=== PATIENT | female | born 1990 | race Caucasian/White ===

== ENCOUNTER 2016-08-18 19:32 | Emergency (ER) | payer OTHER ==
--- NOTE | 2016-08-18 22:28 | ED NURSING NOTES ---
Clinical Report - Nurses [facility] [address] [place] [address] 08/18/2016 19:36 Patient: ANDREW CAMPBELL TRIAGE Triage time 20:21. Acuity: LEVEL 3. Chief Complaint: (Rapid heart rate). 20:27. Alert. SEPSIS SCREEN: Sepsis Screen. Negative (no infection suspected/documented). DEBBIE COMA SCORE: [place] Coma Scale: 15- eyes open spontaneously (4); best verbal response- oriented x 4 (5); best motor response- obeys commands (6). --20:27 José Miguel Dowd R.N. 20:21 08/18/16. BP: 141/101. HR: 148. RR: 17. O2 saturation: 100% on room air. Temp: 98.7 F. Pain level now: 0/10. --20:27 José Miguel Dowd R.N. Weight: 92.5 kg stated. Height/Length: 59 inches Per Patient. BMI: 41.2. --20:26 José Miguel Dowd R.N. Medications MetFORMIN HCl Oral 2000mg , daily. --20:23 José Miguel Dowd R.N. NexIUM Oral 40 mg, daily. --20:24 José Miguel Dowd R.N. Zoloft Oral 50 mg, daily. --20:24 José Miguel Dowd R.N. ASA Oral 81mg , daily. --20:24 José Miguel Dowd R.N. Novalog, PRN. --20:25 José Miguel Dowd R.N. Medication/allergy information source: the patient. --20:27 José Miguel Dowd R.N. Allergies No Known Drug Allergy. --20:25 José Miguel Dowd R.N. History Arrived by private vehicle. Historian: patient. Accompanied by family. Primary physician (Thomas). Onset. (about 1800). Treatment STORE PERSON: None. PAST MEDICAL HX: Immunizations: up-to-date. Last normal menstrual period was 2 weeks ago. SOCIAL HX: Never smoker. Occasional alcohol use. No drug use. No infectious disease exposure. ABUSE ASSESSMENT: No report of abuse. FALL RISK ASSESSMENT: Fall risk assessment completed. No fall risk identified. NUTRITIONAL RISK ASSESSMENT: The nutritional risk assessment revealed no deficiencies. FUNCTIONAL ASSESSMENT: Functional assessment: no impairments noted. LEARNING NEEDS ASSESSMENT: The learning needs assessment revealed no barriers. SKIN INTEGRITY ASSESSMENT: Skin integrity risk assessment completed. No skin integrity risk identified. --20:27 José Miguel Dowd R.N. PROBLEMS: Polycystic Ovary Disease. Gastroesophageal Reflux Disease. Diabetes Mellitus. Depression. --20:26 José Miguel Dowd R.N. ADDITIONAL SURGERIES: Atrial Septal Defect Repair. --20:26 José Miguel Dowd R.N. Interventions ID band on patient. --20:27 José Miguel Dowd R.N. PHYSICAL ASSESSMENT 20:35. Ambulatory to room. Patient gowned. GENERAL / NEURO / PSYCH: Alert. Oriented X 4. Appears in no acute distress. HEENT: Mucous membranes are pink. RESPIRATORY: Respirations not labored. CVS: Capillary refill less than 2 seconds. GI / : Abdomen soft. SKIN: Skin is warm and dry. --20:46 Elo Wong R.N. NURSING PROGRESS NOTES 20:45 08/18/16. weeder thinner placed on patient. Patient gowned. Head of bed elevated. Reassurance given. Patient identifiers checked. Call light placed in reach. Side rails up. Bed placed in lowest position. Patient ready for evaluation- chart flagged. --20:45 Elo Wong R.N. late entry -20:35. Patient ID band checked for patient name and birthdate: patient confirmed. Clean catch urine collected; sample sent to lab for urinalysis and culture. Specimen labeled in the presence of the patient. --20:46 Elo Wong R.N. 20:55 08/18/2016 Site #1 started via IV in the right antecubital space with an 20g angiocath, with aseptic technique and good blood return; one attempt. Blood drawn: rainbow set. Labeled in the presence of the patient and sent to the lab. Saline lock flushed with 10 mL saline. --21:12 Elo Wong R.N. EKG time: (2119). EKG was ordered, performed by a tech and shown to the BLOCKERS SKIVER. --21:20 Elliot Edwards, ER Converting Supervisor 21:10 08/18/2016 Started bag #1 1000 mL IV Fluids IV NS (Saline); at 1000 mL/hr over 1 hour(s) via site #1 via IV pump. IV patency established. IV site checked: no pain, redness, or swelling. IV flushed thoroughly pre- and post-medication administration. --21:22 Elo Wong R.N. 22:00 08/18/16. BP: 138/73. HR: 117. RR: 22. O2 saturation: 100% on room air. Temp: deferred. Pain level now: 0/10. Additional comments: resting quietly, at bedside, waiting for lab results. --22:04 Elo Wong R.N. 22:15 08/18/2016 IV Fluids IV NS Discontinued: bag #1 infused. Total amount infused: 1000 mL. IV patency established. IV site checked: no pain, redness, or swelling. IV flushed thoroughly. --23:15 José Miguel Medrano R.N. 22:45 08/18/2016 Site #1 removed upon discharge. Catheter intact. Manual pressure, pressure dressing and bandaid applied. --23:21 José Miguel Medrano R.N. DISPOSITION / DISCHARGE 22:50 08/18/16. BP: 126/74. HR: 115. RR: 16. O2 saturation: 100% on room air. Temp: 99.4 F (oral). Pain level now: 0/10. --23:12 José Miguel Medrano R.N. Departure time: 2249. --23:12 José Miguel Medrano R.N. 22:50. Condition at departure: improved. No learning barriers present. Discharge instructions provided and reviewed with the patient and spouse. Reviewed medication(s) (prescription given to pt). Reviewed referral to family practice for followup. Patient verbalized understanding. Written instructions provided in Jamaican. The patient was discharged by the nurse practitioner. She was discharged home and accompanied by spouse. She left the Emergency Department ambulatory and via private vehicle. Parent driving. --23:14 José Miguel Medrano R.N. Locked/Released at 08/18/2016 23:22 by José Miguel Medrano R.N.
--- NOTE | 2016-08-18 22:28 | ED ORDER SUMMARY ---
..... Patient: ANDREW CAMPBELL OrderSheet [facility] VisitID: [id number] [place] [address] 25y, F Registration Date/Time: 08/18/2016 ORDER SHEET Weight: 92.5 kg (stated) Allergies: No Known Drug Allergy GENERAL ORDERS: Jewel Cupping Machine Operator (Continuous) (raqipd heart) (21:08/18/2016 DDean R.N. per protocol) (21:22 DDean R.N.) CBC w Diff Urgent (21:08/18/2016 DDean R.N. per protocol) (Ack 21:27 LTapper) (21:46 DDean R.N.) CMP Urgent (21:08/18/2016 DDean R.N. per protocol) (Ack 21:27 LTapper) (21:46 DDean R.N.) UA-Culture if indicated Urgent (21:08/18/2016 DDean R.N. per protocol) (Ack 21:27 LTapper) (21:46 DDean R.N.) Oxygen (2 L/min) (NC) (21:21 08/18/2016 DDean R.N. per protocol) (21:22 DDean R.N.) EKG - ER Stat (21:08/18/2016 DDean R.N. per protocol) (21:21 [facility] CPK Urgent (21:34 08/18/2016 HBivens A.R.N.P.) (Ack 21:35 LTapper) (21:46 DDean R.N.) Troponin-I Urgent (21:34 08/18/2016 HBivens A.R.N.P.) (Ack 21:35 LTapper) (21:46 DDean R.N.) D-Dimer Urgent (21:34 08/18/2016 HBivens A.R.N.P.) (Ack 21:35 LTapper) (21:46 DDean R.N.) MEDICATION ORDERS: IV FLUIDS: IV NS with Normal Saline 1 Liter: initial bolus none -, then 1000 mL/hr for X1 (NOW) (21:20 08/18/2016 DDean R.N. per protocol) (21:22 DDean R.N.) ORDER SHEET NOTES: [Electronically signed by José Miguel Medrano R.N. (23:22 08/18/2016)] [Electronically signed by Audrey Young (11:54 08/19/2016)] [Electronically locked/signed by José Miguel Medrano R.N. (23:08/18/2016)]
--- NOTE | 2016-08-18 22:28 | ED CLINICAL REPORT ---
Clinical Report - Physicians/Mid Levels [facility] [address] [place] [address] 08/18/2016 19:36 Patient: ANDREW CAMPBELL Time Seen: 21:15; initial patient contact, initial documentation, patient care assumed. Arrived- By private vehicle. Historian- patient. HISTORY OF PRESENT ILLNESS Chief Complaint: PALPITATIONS. Modifying factors. Not worsened by anything. Not relieved by anything. This started just prior to arrival and is still present but is better now. Onset during rest. It is described as a fast and pounding heart beat. No chest pain or discomfort, difficulty breathing, sweating episodes or fainting episodes. No dizziness, tingling or muscle spasms. Similar symptoms previously: Once, as bad. ( and was told she was dehydrated). Recent medical care: Not recently seen/assessed. REVIEW OF SYSTEMS No fever, cough, abdominal pain, vomiting or diarrhea. All systems otherwise negative, except as recorded above. PAST HISTORY See nurses notes. PROBLEMS: Polycystic Ovary Disease. Gastroesophageal Reflux Disease. Diabetes Mellitus. Depression. --20:26 José Miguel Dowd RCataN. ADDITIONAL SURGERIES: Atrial Septal Defect Repair. --20:26 José Miguel Dowd R.N. SOCIAL HISTORY Never smoker. Occasional alcohol use. No drug use. No recent travel. Is a local resident. ADDITIONAL NOTES The nursing notes have been reviewed with agreement regarding the chief complaint, HPI, ROS, PMH and patient medications and allergies. PHYSICAL EXAM Vital Signs: 08/18/2016 20:21 BP: 141/101. HR: 148. RR: 17. O2 saturation: 100%. Temp: 98.7 F. Pain level now: 0/10. Have been reviewed as abnormal and appear to be correct. Hypertensive. Tachycardic. Respiratory rate normal. Temperature normal. Oxygen saturation normal. Appearance: Alert. Oriented X3. No acute distress. Eyes: Pupils equal, round and reactive to light. Eyes normal inspection. Neck: Normal inspection. Neck supple. CVS: Heart rate / rhythm abnormal. Tachycardia (ventricular rate = 130). Heart sounds normal. Pulses normal. Respiratory: No respiratory distress. Breath sounds normal. Chest nontender. Back: Normal external inspection. Skin: Skin warm and dry. Normal skin color. No rash. Normal skin turgor. Extremities: Extremities exhibit normal ROM. No lower extremity edema. Neuro: Oriented X 3. No motor deficit. No sensory deficit. LABS, X-RAYS, AND EKG EKG: EKG time: (2119). No acute process. No acute ischemia. Regular narrow-complex tachycardia (135). Sinus tachycardia. The study has been interpreted contemporaneously by me (and dr barraza). The EKG appears to be a good tracing. Interpretation time: 2119. Laboratory Tests: UA-Culture if indicated: (ISHAAN: 08/18/2016 20:50) ( MsgRcvd 08/18/2016 21:41) Final results Test Result Flag Units (Reference) URINE COLOR YELLOW URINE APPEARANCE SL CLOUDY URINE GLUCOSE 2+ (NEGATIVE) URINE BILIRUBIN NEGATIVE (NEGATIVE) URINE KETONE NEGATIVE (NEGATIVE) URINE SPECIFIC GRAVITY <= 1.005 L (1.010-1.030) URINE PH 6.5 (5.0-8.0) URINE PROTEIN NEGATIVE (NEGATIVE) URINE UROBILINOGEN 0.2 EU/dL (0.2-1.0) URINE NITRITE NEGATIVE (NEGATIVE) URINE BLOOD 1+ (NEGATIVE) URINE LEUK ESTERASE POSITIVE (NEGATIVE) URINE RBC NONE SEEN rbc/hpf (0-1) URINE WBC 25-50 wbc/hpf (0-1) URINE EPITHELIAL CELLS >15 EPI/hpf (0-5) URINE BACTERIA MANY (4+) (NONE SEEN) URINE COMMENT CULTURE INDICATED URINE CULTURES ARE SET-UP BASED ON THE FOLLOWING CRITERIA:POSITIVE NITRITEPOSITIVE LEUKOCYTE ESTERASEGREATER THAN 10 WHITE BLOOD CELLSMODERATE (2+) OR GREATER BACTERIA CBC w Diff: (ISHAAN: 08/18/2016 20:55) ( MsgRcvd 08/18/2016 21:57) Final results Test Result Flag Units (Reference) WHITE BLOOD COUNT 7.7 K/uL (4.5-11.5) RED BLOOD COUNT 4.77 M/uL (4.00-5.20) HEMOGLOBIN 10.5 L gm/dL (12.0-16.0) HEMATOCRIT 34.0 L % (36.0-46.0) MEAN CELL VOLUME 71 L fL (80-100) MEAN CORPUSCULAR HGB 22 L pg (26-34) MEAN CORPUSCULAR HGB CONC 31 g/dL (31-37) RED CELL DISTRIBUTION WIDTH 17.5 H % (11.6-14.8) PLATELET COUNT 301 K/uL (150-400) NEUTROPHIL % 67.4 % (50-75) LYMPH % 23.7 L % (25-40) MONO % 6.7 % (3-14) EOSINOPHIL % 1.6 % (0-4) BASOPHIL % 0.6 % (0-2) RBC MORPHOLOGY 1+ ANISOCYTOSIS~~1+ MICROCYTOSIS [id number]: (ISHAAN: 08/18/2016 20:55) ( [facility] 08/18/2016 22:04) Final results Test Result Flag Units (Reference) D-DIMER QUANTITATIVE 0.36 ug/mLFEU (0.27-0.52) The primary value of this quantitative assay relates toits negative predictive value (i.e. exclusion) of pulmonaryembolism/deep vein thrombosis/DIC.Elevated levels of d-dimer may also occur with:, age, cancer, inflammation, liver disease,post-op, infection, hematoma, coronary disease, peripheralarteriopathy, bleeding disorders and thrombolytic treatment.Results should be correlated with other clinical andradiological data.Testing Methodology: Latex Immunoassay CPK: (ISHAAN: 08/18/2016 20:55) ( [facility] 08/18/2016 21:59) Final results Test Result Flag Units (Reference) CPK 79 U/L (24-260) TROPONIN I <0.05 L ng/mL (0.00-1.5) TROPONIN REFERENCE RANGE:<0.1 NEGATIVE0.1-1.5 INDETERMINANT>1.5 POSITIVE CMP: (ISHAAN: 08/18/2016 20:55) ( [facility] 08/18/2016 21:47) Final results Test Result Flag Units (Reference) GLUCOSE 321 H mg/dL (70-110) BUN 14 mg/dL (7-18) CREATININE 0.9 mg/dL (0.6-1.3) Estimated GFR >60 mL/min Estimated GFR- >60 mL/min Note: Persistent reduction over 3 months in eGFR<60 mL/min/1.73 m2 defines CKD. Patients with eGFR values>=60 mL/min/1.73 m2 may also have CKD if evidence ofpersistent proteinuria. Additional information may be foundat www.kidney.org. SODIUM 135 L mmol/L (136-145) POTASSIUM 4.0 mmol/L (3.5-5.1) CHLORIDE 98 mmol/L (98-107) CARBON DIOXIDE 26 mmol/L (21-32) CALCIUM 8.8 mg/dL (8.5-10.1) TOTAL PROTEIN 7.8 g/dL (6.4-8.2) ALBUMIN 3.5 g/dL (3.3-5.0) BILIRUBIN, TOTAL 0.2 mg/dL (0.0-1.0) ALKALINE PHOSPHATASE 139 H U/L (46-116) AST (SGOT) 38 H U/L (15-37) ALT (SGPT) 86 H U/L (12-78) . PROGRESS AND PROCEDURES Course of Care: 08/18/2016 22:00 BP: 138/73. HR: 117. RR: 22. O2 saturation: 100%. Pain level now: 0/10. Vital Signs: have been reviewed as normal and appear to be correct. Patient counseled in person regarding the patient's stable condition, test results and diagnosis. 22:13. Differential Diagnosis: Other possible considerations: svt, afib, aflutter, dehydration, flu, viral illness, pe. Above considerations are based on history, physical exam, laboratory data and EKG. Differential diagnosis was discussed with patient. Disposition: Discharged home in good and improved condition (22:28). Condition: good and stable. CLINICAL IMPRESSION Acute urinary tract infection. No cystitis, pyelonephritis or hematuria. Not associated with indwelling catheter. Palpitations INSTRUCTIONS Drink plenty of fluids. Warnings: GENERAL WARNINGS: Return or contact your physician immediately if your condition worsens or changes unexpectedly, if not improving as expected, or if other problems arise. SPECIFICALLY, return if you develop chest, neck, jaw, shoulder, arm, or back pain, difficulty breathing, a fluttering sensation in your chest, lightheadedness, fainting, excessive fatigue, or sudden sweating. Prescription Medications: Bactrim DS 800 mg / 160 mg: Take 1 tablet orally every 12 hours for 7 days. Dispense fourteen (14). No refills. Substitution is permissible. Follow-up: Follow up with your doctor in about three days even if well. Call for an appointment. Summary of care provided to patient. Screening today revealed the patient's blood pressure to be in the hypertensive range. The patient should follow up with a primary care provider for blood pressure management. Understanding of the discharge instructions verbalized by patient. (Electronically signed by Audrey Young A.R.N.P. 08/19/2016 11:54)
--- NOTE | 2016-08-18 22:28 | ED NURSING NOTES ---
Clinical Report - Nurses [facility] [address] [place] [address] 08/18/2016 19:36 Patient: ANDREW CAMPBELL TRIAGE Triage time 20:21. Acuity: LEVEL 3. Chief Complaint: (Rapid heart rate). 20:27. Alert. SEPSIS SCREEN: Sepsis Screen. Negative (no infection suspected/documented). DEBBIE COMA SCORE: [place] Coma Scale: 15- eyes open spontaneously (4); best verbal response- oriented x 4 (5); best motor response- obeys commands (6). --20:27 José Miguel Dowd R.N. 20:21 08/18/16. BP: 141/101. HR: 148. RR: 17. O2 saturation: 100% on room air. Temp: 98.7 F. Pain level now: 0/10. --20:27 José Miguel Dowd R.N. Weight: 92.5 kg stated. Height/Length: 59 inches Per Patient. BMI: 41.2. --20:26 José Miguel Dowd R.N. Medications MetFORMIN HCl Oral 2000mg , daily. --20:23 José Miguel Dowd R.N. NexIUM Oral 40 mg, daily. --20:24 José Miguel Dowd R.N. Zoloft Oral 50 mg, daily. --20:24 José Miguel Dowd R.N. ASA Oral 81mg , daily. --20:24 José Miguel Dowd R.N. Novalog, PRN. --20:25 José Miguel Dowd R.N. Medication/allergy information source: the patient. --20:27 José Miguel Dowd R.N. Allergies No Known Drug Allergy. --20:25 José Miguel Dowd R.N. History Arrived by private vehicle. Historian: patient. Accompanied by family. Primary physician (Thomas). Onset. (about 1800). Treatment AIR SAMPLING AND MONITORING: None. PAST MEDICAL HX: Immunizations: up-to-date. Last normal menstrual period was 2 weeks ago. SOCIAL HX: Never smoker. Occasional alcohol use. No drug use. No infectious disease exposure. ABUSE ASSESSMENT: No report of abuse. FALL RISK ASSESSMENT: Fall risk assessment completed. No fall risk identified. NUTRITIONAL RISK ASSESSMENT: The nutritional risk assessment revealed no deficiencies. FUNCTIONAL ASSESSMENT: Functional assessment: no impairments noted. LEARNING NEEDS ASSESSMENT: The learning needs assessment revealed no barriers. SKIN INTEGRITY ASSESSMENT: Skin integrity risk assessment completed. No skin integrity risk identified. --20:27 José Miguel Dowd R.N. PROBLEMS: Polycystic Ovary Disease. Gastroesophageal Reflux Disease. Diabetes Mellitus. Depression. --20:26 José Miguel Dowd R.N. ADDITIONAL SURGERIES: Atrial Septal Defect Repair. --20:26 José Miguel Dowd R.N. Interventions ID band on patient. --20:27 José Miguel Dowd R.N. PHYSICAL ASSESSMENT 20:35. Ambulatory to room. Patient gowned. GENERAL / NEURO / PSYCH: Alert. Oriented X 4. Appears in no acute distress. HEENT: Mucous membranes are pink. RESPIRATORY: Respirations not labored. CVS: Capillary refill less than 2 seconds. GI / : Abdomen soft. SKIN: Skin is warm and dry. --20:46 Elo Wong R.N. NURSING PROGRESS NOTES 20:45 08/18/16. nurse monitoring placed on patient. Patient gowned. Head of bed elevated. Reassurance given. Patient identifiers checked. Call light placed in reach. Side rails up. Bed placed in lowest position. Patient ready for evaluation- chart flagged. --20:45 Elo Wong R.N. late entry -20:35. Patient ID band checked for patient name and birthdate: patient confirmed. Clean catch urine collected; sample sent to lab for urinalysis and culture. Specimen labeled in the presence of the patient. --20:46 Elo Wong R.N. 20:55 08/18/2016 Site #1 started via IV in the right antecubital space with an 20g angiocath, with aseptic technique and good blood return; one attempt. Blood drawn: rainbow set. Labeled in the presence of the patient and sent to the lab. Saline lock flushed with 10 mL saline. --21:12 Elo Wong R.N. EKG time: (2119). EKG was ordered, performed by a tech and shown to the EXTRUSION BENDER. --21:20 Elliot Edwards, ER Coiler 21:10 08/18/2016 Started bag #1 1000 mL IV Fluids IV NS (Saline); at 1000 mL/hr over 1 hour(s) via site #1 via IV pump. IV patency established. IV site checked: no pain, redness, or swelling. IV flushed thoroughly pre- and post-medication administration. --21:22 Elo Wong R.N. 22:00 08/18/16. BP: 138/73. HR: 117. RR: 22. O2 saturation: 100% on room air. Temp: deferred. Pain level now: 0/10. Additional comments: resting quietly, at bedside, waiting for lab results. --22:04 Elo Wong R.N. 22:15 08/18/2016 IV Fluids IV NS Discontinued: bag #1 infused. Total amount infused: 1000 mL. IV patency established. IV site checked: no pain, redness, or swelling. IV flushed thoroughly. --23:15 José Miguel Medrano R.N. 22:45 08/18/2016 Site #1 removed upon discharge. Catheter intact. Manual pressure, pressure dressing and bandaid applied. --23:21 José Miguel Medrano R.N. DISPOSITION / DISCHARGE 22:50 08/18/16. BP: 126/74. HR: 115. RR: 16. O2 saturation: 100% on room air. Temp: 99.4 F (oral). Pain level now: 0/10. --23:12 José Miguel Medrano R.N. Departure time: 2249. --23:12 José Miguel Medrano R.N. 22:50. Condition at departure: improved. No learning barriers present. Discharge instructions provided and reviewed with the patient and spouse. Reviewed medication(s) (prescription given to pt). Reviewed referral to family practice for followup. Patient verbalized understanding. Written instructions provided in Turkmen. The patient was discharged by the nurse practitioner. She was discharged home and accompanied by spouse. She left the Emergency Department ambulatory and via private vehicle. Parent driving. --23:14 José Miguel Medrano R.N. Locked/Released at 08/18/2016 23:22 by José Miguel Medrano R.N.
--- NOTE | 2016-08-18 22:28 | ED ORDER SUMMARY ---
..... Patient: ANDREW CAMPBELL OrderSheet [facility] VisitID: [id number] [place] [address] 25y, F Registration Date/Time: 08/18/2016 ORDER SHEET Weight: 92.5 kg (stated) Allergies: No Known Drug Allergy GENERAL ORDERS: Senior Systems Administrator (Continuous) (raqipd heart) (21:08/18/2016 DDean R.N. per protocol) (21:22 DDean R.N.) CBC w Diff Urgent (21:08/18/2016 DDean R.N. per protocol) (Ack 21:27 LTapper) (21:46 DDean R.N.) CMP Urgent (21:08/18/2016 DDean R.N. per protocol) (Ack 21:27 LTapper) (21:46 DDean R.N.) UA-Culture if indicated Urgent (21:08/18/2016 DDean R.N. per protocol) (Ack 21:27 LTapper) (21:46 DDean R.N.) Oxygen (2 L/min) (NC) (21:21 08/18/2016 DDean R.N. per protocol) (21:22 DDean R.N.) EKG - ER Stat (21:08/18/2016 DDean R.N. per protocol) (21:21 [facility] Typesetter Perforator Operator) CPK Urgent (21:34 08/18/2016 HBivens A.R.N.P.) (Ack 21:35 LTapper) (21:46 DDean R.N.) Troponin-I Urgent (21:34 08/18/2016 HBivens A.R.N.P.) (Ack 21:35 LTapper) (21:46 DDean R.N.) D-Dimer Urgent (21:34 08/18/2016 HBivens A.R.N.P.) (Ack 21:35 LTapper) (21:46 DDean R.N.) MEDICATION ORDERS: IV FLUIDS: IV NS with Normal Saline 1 Liter: initial bolus none -, then 1000 mL/hr for X1 (NOW) (21:20 08/18/2016 DDean R.N. per protocol) (21:22 DDean R.N.) ORDER SHEET NOTES: [Electronically signed by José Miguel Medrano R.N. (23:22 08/18/2016)] [Electronically signed by Audrey Young (11:54 08/19/2016)] [Electronically locked/signed by José Miguel Medrano R.N. (23:08/18/2016)]
--- NOTE | 2016-08-19 11:54 | ED DISCHARGE INSTRUCTIONS ---
Patient: ANDREW CAMPBELL General Instructions [facility] VisitID: [id number] [place] [address] 25y, F Registration Date/Time: 08/18/2016 Acute urinary tract infection. No cystitis, pyelonephritis or hematuria. Not associated with indwelling catheter. Palpitations INSTRUCTIONS Drink plenty of fluids. Warnings: GENERAL WARNINGS: Return or contact your physician immediately if your condition worsens or changes unexpectedly, if not improving as expected, or if other problems arise. SPECIFICALLY, return if you develop chest, neck, jaw, shoulder, arm, or back pain, difficulty breathing, a fluttering sensation in your chest, lightheadedness, fainting, excessive fatigue, or sudden sweating. Prescription Medications: Bactrim DS 800 mg / 160 mg: Take 1 tablet orally every 12 hours for 7 days. Dispense fourteen (14). No refills. Substitution is permissible. Follow-up: Follow up with your doctor in about three days even if well. Call for an appointment. Summary of care provided to patient. Screening today revealed the patient's blood pressure to be in the hypertensive range. The patient should follow up with a primary care provider for blood pressure management. Understanding of the discharge instructions verbalized by patient. ADDITIONAL INFORMATION Heart Palpitations Palpitations refers to the feeling that your heart is beating hard, fast or irregular. Some people describe it as "pounding" or "skipped beats". Palpitations may occur in persons with heart disease, but can also occur in healthy persons. Heart-Related Causes: Arrhythmia (a change from the heart's normal rhythm) Disease of the heart valves Pmo-Ocmub-Pxqwaag Causes: Certain medicines (such as asthma inhalers and decongestants) Some herbal supplements, energy drinks and pills, and weight loss pills Illegal stimulant drugs (such as cocaine, crank, methamphetamine, PCP) Caffeine, alcohol and tobacco Medical conditions such as thyroid disease, anemia, anxiety and panic disorder Sometimes the cause cannot be found. Home Care: Avoid excess caffeine, alcohol, tobacco and any stimulant drugs. Tell your doctor about any prescription or otqz-nzm-mmqpled or herbal medicines you take. Follow Up with your doctor or as advised by our staff. Get Prompt Medical Attention if any of the following occur together with palpitations: Weakness, dizziness, light-headed or fainting Chest pain or shortness of breath Rapid heart rate (over 120 beats per minute, at rest) Palpitations that lasts over 20 minutes Weakness of an arm or leg or one side of the face Difficulty with speech or vision Bladder Infection,Female (Adult) A bladder infection ("cystitis" or "UTI") usually causes a constant urge to urinate and a burning when passing urine. Urine may be cloudy, smelly or dark. There may be pain in the lower abdomen. A bladder infection occurs when bacteria from the vaginal area enter the bladder opening (urethra). This can occur from sexual intercourse, wearing tight clothing, dehydration and other factors. Home Care: Drink lots of fluids (at least 6-8 glasses a day, unless you must restrict fluids for other medical reasons). This will force the medicine into your urinary system and flush the bacteria out of your body. Avoid sexual intercourse until your symptoms are gone. Avoid caffeine, alcohol and spicy foods. These can irritate the bladder. A bladder infection is treated with antibiotics. You may also be given Pyridium (generic = phenazopyridine) to reduce the burning sensation. This medicine will cause your urine to become a bright orange color. The orange urine may stain clothing. You may wear a pad or panty-liner to protect clothing. Preventing Future Infections: Always wipe from front to back after a bowel movement. Keep the genital area clean and dry. Drink plenty of fluids each day to avoid dehydration. Both sexual partners should wash before intercourse. Urinate right after intercourse to flush out the bladder. Wear cotton underwear and cotton-lined panty hose; avoid tight-fitting pants. If you are on control pills and are having frequent bladder infections, discuss with your doctor. Follow Up: Return to this facility or see your doctor if ALL symptoms are not gone after three days of treatment. Get Prompt Medical Attention if any of the following occur: Fever of 100.4F (38C) or higher, or as directed by your healthcare provider No improvement by the third day of treatment Increasing back or abdominal pain Repeated vomiting; unable to keep medicine down Weakness, dizziness or fainting Vaginal discharge Pain, redness or swelling in the labia (outer vaginal area) Sulfamethoxazole, Trimethoprim Oral tablet What is this medicine? SULFAMETHOXAZOLE; TRIMETHOPRIM or SMX-TMP (suhl fuh meth OK deborah zohl; trye METH oh prim) is a combination of a sulfonamide antibiotic and a second antibiotic, trimethoprim. It is used to treat or prevent certain kinds of bacterial infections. It will not work for colds, flu, or other viral infections. How should I use this medicine? Take this medicine by mouth with a full glass of water. Follow the directions on the prescription label. Take your medicine at regular intervals. Do not take it more often than directed. Do not skip doses or stop your medicine early. Talk to your treadle cut off saw operator regarding the use of this medicine in children. Special care may be needed. This medicine has been used in children as young as 2 months of age. What side effects may I notice from receiving this medicine? Side effects that you should report to your doctor or health career technical supervisor as soon as possible: allergic reactions like skin rash or hives, swelling of the face, lips, or tongue breathing problems fever or chills, sore throat irregular heartbeat, chest pain joint or muscle pain pain or difficulty passing urine red pinpoint spots on skin redness, blistering, peeling or loosening of the skin, including inside the mouth unusual bleeding or bruising unusually weak or tired yellowing of the eyes or skin Side effects that usually do not require medical attention (report to your doctor or health career technical supervisor if they continue or are bothersome): diarrhea dizziness headache loss of appetite nausea, vomiting nervousness What may interact with this medicine? Do not take this medicine with any of the following medications: aminobenzoate potassium dofetilide metronidazole This medicine may also interact with the following medications: KELLE inhibitors like benazepril, enalapril, lisinopril, and ramipril cyclosporine digoxin diuretics indomethacin medicines for diabetes methenamine methotrexate phenytoin potassium supplements pyrimethamine sulfinpyrazone tricyclic antidepressants warfarin What if I miss a dose? If you miss a dose, take it as soon as you can. If it is almost time for your next dose, take only that dose. Do not take double or extra doses. Where should I keep my medicine? Keep out of the reach of children. Store at room temperature between 20 to 25 degrees C (68 to 77 degrees F). Protect from light. Throw away any unused medicine after the expiration date. What should I tell my health care provider before I take this medicine? They need to know if you have any of these conditions: anemia asthma being treated with anticonvulsants if you frequently drink alcohol containing drinks kidney disease liver disease low level of folic acid or cacyxet-0-kvaeoxnui dehydrogenase poor nutrition or malabsorption porphyria severe allergies thyroid disorder an unusual or allergic reaction to sulfamethoxazole, trimethoprim, sulfa drugs, other medicines, foods, dyes, or preservatives or trying to get breast-feeding What should I watch for while using this medicine? Tell your doctor or health career technical supervisor if your symptoms do not improve. Drink several glasses of water a day to reduce the risk of kidney problems. Do not treat diarrhea with over the counter products. Contact your doctor if you have diarrhea that lasts more than 2 days or if it is severe and watery. This medicine can make you more sensitive to the sun. Keep out of the sun. If you cannot avoid being in the sun, wear protective clothing and use a sunscreen. Do not use sun lamps or tanning beds/booths. You have been given the following additional information: Palpitations Bladder Infection, Female (Adult) Sulfamethoxazole, Trimethoprim Oral tablet (Electronically signed by Audrey Young A.R.N.P. 08/19/2016 11:54)
--- NOTE | 2016-08-19 11:54 | ED DISCHARGE INSTRUCTIONS ---
Patient: ANDREW CAMPBELL General Instructions [facility] VisitID: [id number] [place] [address] 25y, F Registration Date/Time: 08/18/2016 Acute urinary tract infection. No cystitis, pyelonephritis or hematuria. Not associated with indwelling catheter. Palpitations INSTRUCTIONS Drink plenty of fluids. Warnings: GENERAL WARNINGS: Return or contact your physician immediately if your condition worsens or changes unexpectedly, if not improving as expected, or if other problems arise. SPECIFICALLY, return if you develop chest, neck, jaw, shoulder, arm, or back pain, difficulty breathing, a fluttering sensation in your chest, lightheadedness, fainting, excessive fatigue, or sudden sweating. Prescription Medications: Bactrim DS 800 mg / 160 mg: Take 1 tablet orally every 12 hours for 7 days. Dispense fourteen (14). No refills. Substitution is permissible. Follow-up: Follow up with your doctor in about three days even if well. Call for an appointment. Summary of care provided to patient. Screening today revealed the patient's blood pressure to be in the hypertensive range. The patient should follow up with a primary care provider for blood pressure management. Understanding of the discharge instructions verbalized by patient. ADDITIONAL INFORMATION Heart Palpitations Palpitations refers to the feeling that your heart is beating hard, fast or irregular. Some people describe it as "pounding" or "skipped beats". Palpitations may occur in persons with heart disease, but can also occur in healthy persons. Heart-Related Causes: Arrhythmia (a change from the heart's normal rhythm) Disease of the heart valves Gwr-Btlim-Vadnviq Causes: Certain medicines (such as asthma inhalers and decongestants) Some herbal supplements, energy drinks and pills, and weight loss pills Illegal stimulant drugs (such as cocaine, crank, methamphetamine, PCP) Caffeine, alcohol and tobacco Medical conditions such as thyroid disease, anemia, anxiety and panic disorder Sometimes the cause cannot be found. Home Care: Avoid excess caffeine, alcohol, tobacco and any stimulant drugs. Tell your doctor about any prescription or mzze-sad-lzezqzl or herbal medicines you take. Follow Up with your doctor or as advised by our staff. Get Prompt Medical Attention if any of the following occur together with palpitations: Weakness, dizziness, light-headed or fainting Chest pain or shortness of breath Rapid heart rate (over 120 beats per minute, at rest) Palpitations that lasts over 20 minutes Weakness of an arm or leg or one side of the face Difficulty with speech or vision Bladder Infection,Female (Adult) A bladder infection ("cystitis" or "UTI") usually causes a constant urge to urinate and a burning when passing urine. Urine may be cloudy, smelly or dark. There may be pain in the lower abdomen. A bladder infection occurs when bacteria from the vaginal area enter the bladder opening (urethra). This can occur from sexual intercourse, wearing tight clothing, dehydration and other factors. Home Care: Drink lots of fluids (at least 6-8 glasses a day, unless you must restrict fluids for other medical reasons). This will force the medicine into your urinary system and flush the bacteria out of your body. Avoid sexual intercourse until your symptoms are gone. Avoid caffeine, alcohol and spicy foods. These can irritate the bladder. A bladder infection is treated with antibiotics. You may also be given Pyridium (generic = phenazopyridine) to reduce the burning sensation. This medicine will cause your urine to become a bright orange color. The orange urine may stain clothing. You may wear a pad or panty-liner to protect clothing. Preventing Future Infections: Always wipe from front to back after a bowel movement. Keep the genital area clean and dry. Drink plenty of fluids each day to avoid dehydration. Both sexual partners should wash before intercourse. Urinate right after intercourse to flush out the bladder. Wear cotton underwear and cotton-lined panty hose; avoid tight-fitting pants. If you are on control pills and are having frequent bladder infections, discuss with your doctor. Follow Up: Return to this facility or see your doctor if ALL symptoms are not gone after three days of treatment. Get Prompt Medical Attention if any of the following occur: Fever of 100.4F (38C) or higher, or as directed by your healthcare provider No improvement by the third day of treatment Increasing back or abdominal pain Repeated vomiting; unable to keep medicine down Weakness, dizziness or fainting Vaginal discharge Pain, redness or swelling in the labia (outer vaginal area) Sulfamethoxazole, Trimethoprim Oral tablet What is this medicine? SULFAMETHOXAZOLE; TRIMETHOPRIM or SMX-TMP (suhl fuh meth OK deborah zohl; trye METH oh prim) is a combination of a sulfonamide antibiotic and a second antibiotic, trimethoprim. It is used to treat or prevent certain kinds of bacterial infections. It will not work for colds, flu, or other viral infections. How should I use this medicine? Take this medicine by mouth with a full glass of water. Follow the directions on the prescription label. Take your medicine at regular intervals. Do not take it more often than directed. Do not skip doses or stop your medicine early. Talk to your reliability technologist regarding the use of this medicine in children. Special care may be needed. This medicine has been used in children as young as 2 months of age. What side effects may I notice from receiving this medicine? Side effects that you should report to your doctor or health home care giver as soon as possible: allergic reactions like skin rash or hives, swelling of the face, lips, or tongue breathing problems fever or chills, sore throat irregular heartbeat, chest pain joint or muscle pain pain or difficulty passing urine red pinpoint spots on skin redness, blistering, peeling or loosening of the skin, including inside the mouth unusual bleeding or bruising unusually weak or tired yellowing of the eyes or skin Side effects that usually do not require medical attention (report to your doctor or health home care giver if they continue or are bothersome): diarrhea dizziness headache loss of appetite nausea, vomiting nervousness What may interact with this medicine? Do not take this medicine with any of the following medications: aminobenzoate potassium dofetilide metronidazole This medicine may also interact with the following medications: KELLE inhibitors like benazepril, enalapril, lisinopril, and ramipril cyclosporine digoxin diuretics indomethacin medicines for diabetes methenamine methotrexate phenytoin potassium supplements pyrimethamine sulfinpyrazone tricyclic antidepressants warfarin What if I miss a dose? If you miss a dose, take it as soon as you can. If it is almost time for your next dose, take only that dose. Do not take double or extra doses. Where should I keep my medicine? Keep out of the reach of children. Store at room temperature between 20 to 25 degrees C (68 to 77 degrees F). Protect from light. Throw away any unused medicine after the expiration date. What should I tell my health care provider before I take this medicine? They need to know if you have any of these conditions: anemia asthma being treated with anticonvulsants if you frequently drink alcohol containing drinks kidney disease liver disease low level of folic acid or foappxx-1-bglstndnm dehydrogenase poor nutrition or malabsorption porphyria severe allergies thyroid disorder an unusual or allergic reaction to sulfamethoxazole, trimethoprim, sulfa drugs, other medicines, foods, dyes, or preservatives or trying to get breast-feeding What should I watch for while using this medicine? Tell your doctor or health home care giver if your symptoms do not improve. Drink several glasses of water a day to reduce the risk of kidney problems. Do not treat diarrhea with over the counter products. Contact your doctor if you have diarrhea that lasts more than 2 days or if it is severe and watery. This medicine can make you more sensitive to the sun. Keep out of the sun. If you cannot avoid being in the sun, wear protective clothing and use a sunscreen. Do not use sun lamps or tanning beds/booths. You have been given the following additional information: Palpitations Bladder Infection, Female (Adult) Sulfamethoxazole, Trimethoprim Oral tablet (Electronically signed by Audrey Young A.R.N.P. 08/19/2016 11:54)
--- NOTE | 2016-08-19 11:55 | ED MAR SUMMARY ---
..... Medication Administration Record [facility] [address] [place] [address] Patient: ANDREW CAMPBELL Visit ID: [id number] 25y, F Weight: 92.5 kg Height/Length: 59 in BMI: 41.2 ALLERGIES: No Known Drug Allergy Start 21:10 08/18/2016 Elo Wong RCataNCata, Stop 22:15 08/18/2016 José Miguel Medrano RLouie Medication Administered: IV NS (SALINE), Dose: IV Fluids over 1 hour(s), Rate: 1000 mL/hr, Dispensed: 1000 mL bag, Site: #1 right AC. Medication Ordered: IV NS with Normal Saline 1 Liter: initial bolus none -, then 1000 mL/hr for X1 (NOW).
--- NOTE | 2016-08-19 11:55 | ED MAR SUMMARY ---
..... Medication Administration Record [facility] [address] [place] [address] Patient: ANDREW CAMPBELL Visit ID: [id number] 25y, F Weight: 92.5 kg Height/Length: 59 in BMI: 41.2 ALLERGIES: No Known Drug Allergy Start 21:10 08/18/2016 Elo Wong RCataNCata, Stop 22:15 08/18/2016 José Miguel Medrano RLouie Medication Administered: IV NS (SALINE), Dose: IV Fluids over 1 hour(s), Rate: 1000 mL/hr, Dispensed: 1000 mL bag, Site: #1 right AC. Medication Ordered: IV NS with Normal Saline 1 Liter: initial bolus none -, then 1000 mL/hr for X1 (NOW).
--- NOTE | 2016-08-19 11:55 | ED MED RECONCILIATION SUMMARY ---
Patient: ADNREW CAMPBELL Medication Reconciliation Report [facility] VisitID: [id number] [address] [place] [address] 25y, F Registration Date/Time: 08/18/2016 Weight: 92.5 kg Height/Length: 59 in. BMI: 41.2 ALLERGIES: No Known Drug Allergy The patient's Home Medications are listed below: THE FOLLOWING MEDICATIONS NEED TO BE RECONCILED: ASA Oral 81mg , daily MetFORMIN HCl Oral 2000mg , daily NexIUM Oral 40 mg, daily Novalog, PRN Zoloft Oral 50 mg, daily The source(s) of the original Home Medication information: patient The following Medications were given to the patient in the Emergency Department: IV NS IV Fluids bolus 0, then 1000 mL/hr, administered: 08/18/2016 9:10:00 PM The following Medications were prescribed to the patient: Bactrim DS 800 mg / 160 mg: Take 1 tablet orally every 12 hours for 7 days. Dispense fourteen (14). No refills. Substitution is permissible. -- Audrey Young A.R.N.P.
--- NOTE | 2016-08-19 11:55 | ED MED RECONCILIATION SUMMARY ---
Patient: ANDREW CAMPBELL Medication Reconciliation Report [facility] VisitID: [id number] [address] [place] [address] 25y, F Registration Date/Time: 08/18/2016 Weight: 92.5 kg Height/Length: 59 in. BMI: 41.2 ALLERGIES: No Known Drug Allergy The patient's Home Medications are listed below: THE FOLLOWING MEDICATIONS NEED TO BE RECONCILED: ASA Oral 81mg , daily MetFORMIN HCl Oral 2000mg , daily NexIUM Oral 40 mg, daily Novalog, PRN Zoloft Oral 50 mg, daily The source(s) of the original Home Medication information: patient The following Medications were given to the patient in the Emergency Department: IV NS IV Fluids bolus 0, then 1000 mL/hr, administered: 08/18/2016 9:10:00 PM The following Medications were prescribed to the patient: Bactrim DS 800 mg / 160 mg: Take 1 tablet orally every 12 hours for 7 days. Dispense fourteen (14). No refills. Substitution is permissible. -- Audrey Young A.R.N.P.
== END 2016-08-18 22:50 | disposition home or self-care (01) ==
LOC: ED SRH 19:32
DX: N39.0 Urinary tract infection, site not specified (principal); R00.2 Palpitations; E11.9 Type 2 diabetes mellitus without complications; F32.9 Major depressive disorder, single episode, unspecified; Z79.84 Long term (current) use of oral hypoglycemic drugs; Z88.8 Allergy status to other drugs, medicaments and biological substances
CPT/HCPCS: 90004; 90100; 90469; 90616; 91556; 92610; 95059